=== PATIENT | female | born 1950 | race Caucasian/White ===

== ENCOUNTER 2023-03-21 17:56 | Observation (INO) ==
[2023-03-21] MEDS ORDERED: Lactated Ringers 1000 ml BAG 1,000 ML IV ONE (18:18)
[2023-03-21] MEDS ORDERED: Prochlorperazine 5 mg/ml 2 ml VIAL (10 mg) IV ONE (18:18)
[2023-03-21] MEDS ORDERED: diazePAM INJ CARPUJECT 5 MG/ML SYRINGE IV ONE (18:19)
[2023-03-21 19:17] LABS: Albumin 3.8 g/dL (3.2-5.2); Calcium 8.3 mg/dL (8.6-10.3); Total Bilirubin 0.4 mg/dL (0.2-1.0)
[2023-03-21 19:23] LABS: Albumin/Globulin Ratio 1.7 (1-3); Creatinine, Serum 0.92 mg/dL (0.51-0.95); Globulin 2.3 g/dL (2-4); Total Protein 6.1 g/dL (6.4-8.9); eGFR CKD-EPI 66.6 (>60)
[2023-03-21 19:27] LABS: Potassium 3.8 mmol/L (3.5-5.0)
[2023-03-21 20:26] LABS: ABS Eosinophils 0.1 10^3/uL (0.0-0.5); ABS Lymphocytes 0.9 10^3/uL (1.0-4.8); ABS Monocytes 0.4 10^3/uL (0.0-0.9); ABS Neutrophils 7.9 10^3/uL (1.5-7.6); Eosinophil % 0.7 %; Hematocrit 41.9 % (35-45); Hemoglobin 14.3 g/dL (11.5-14.3); Mean Corpuscular Hemoglobin 28.7 pg (27-33); Mean Corpuscular Hgb Conc 34.2 g/dL (31-36); Mean Corpuscular Volume 83.9 fL (80-97); Mean Platelet Volume 8.3 fL (7.5-11.2); Platelet Count 225 10^3/uL (150-450); Red Blood Count 4.99 10^6/uL (3.63-4.92); Red Cell Distribution Width 14.5 % (12-17); White Blood Count 9.3 10^3/uL (3.8-11.8)
[2023-03-21] MEDS ORDERED: Droperidol 5 MG/2 ML 2 ML VIAL IV ONE (20:50)
[2023-03-21] MEDS ORDERED: Enoxaparin 40 MG/0.4 ML SYR SUBCUT SCH (22:00)
[2023-03-21] MEDS ORDERED: Ondansetron 4 mg VIAL 2 MG/ML 2 ml VIAL IV PRN (23:38)
[2023-03-21] MEDS ORDERED: diazePAM INJ CARPUJECT 5 MG/ML SYRINGE IV PRN (23:48)
[2023-03-22 05:22] LABS: ABS Basophils 0.1 10^3/uL (0.0-0.1); ABS Eosinophils 0.1 10^3/uL (0.0-0.5); ABS Lymphocytes 1.1 10^3/uL (1.0-4.8); ABS Monocytes 0.5 10^3/uL (0.0-0.9); ABS Neutrophils 5.5 10^3/uL (1.5-7.6); Eosinophil % 1.2 %; Hemoglobin 13.8 g/dL (11.5-14.3); Lymphocyte % 15.5 %; Mean Corpuscular Hemoglobin 28.6 pg (27-33); Mean Corpuscular Hgb Conc 34.4 g/dL (31-36); Mean Corpuscular Volume 83.2 fL (80-97); Platelet Count 228 10^3/uL (150-450); Red Blood Count 4.81 10^6/uL (3.63-4.92); Red Cell Distribution Width 14.7 % (12-17); White Blood Count 7.3 10^3/uL (3.8-11.8)
[2023-03-22 05:39] LABS: Creatinine, Serum 0.91 mg/dL (0.51-0.95); Magnesium 2.1 mg/dL (1.9-2.7); Potassium 3.8 mmol/L (3.5-5.0); eGFR CKD-EPI 67.4 (>60)
[2023-03-22 14:24] VITALS: BP 172/67
== END 2023-03-22 14:22 | disposition home or self-care (01) ==
LOC: ED 17:56 → EDHOLD 17:56 → SUATTDRO 21:01 → EDHOLD 03-22 14:21
PROVIDERS: ADMIT Student in an Organized Health Care Education/Training Program; ATTEND Internal Medicine